=== PATIENT | male | born 1980 | race Caucasian/White ===

== ENCOUNTER 2018-06-19 21:23 | Emergency (ER) | payer BC ==
[2018-06-19 21:41] VITALS: BP 135/79
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
== END 2018-06-19 22:07 | disposition home or self-care (01) ==
LOC: UCCORT 21:23
DX: S09.90XA Unspecified injury of head, initial encounter (principal); S00.01XA Abrasion of scalp, initial encounter; W22.8XXA Striking against or struck by other objects, initial encounter; Y93.I9 Activity, other involving external motion; Y92.9 Unspecified place or not applicable; Z88.0 Allergy status to penicillin
CPT/HCPCS: 99212; G0463

== ENCOUNTER 2018-09-25 13:04 | Emergency (ER) | payer BC ==
[2018-09-25 13:29] VITALS: BP 128/68
--- NOTE | 2018-09-25 13:33 | UC ---
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 duration of bite is not known. no feferv, rash, joint pains or fatigue. - History of Current Complaint Stated Complaint: TICK BITE Time Seen by Provider: 09/25/18 13:21 Hx Obtained From: Patient Pain Intensity: 0 - Allergy/Home Medications Allergies/Adverse Reactions: Allergies Allergy/AdvReac Type Severity Reaction Status Date / Time Penicillins Allergy Intermediate Rash Verified 09/25/18 13:26 Home Medications: Home Medications Ibuprofen TAB* [Advil TAB*] 400 mg PO Q6H PRN 09/25/18 [History Confirmed ] PMH/Surg Hx/FS Hx/Imm Hx Previously Healthy: Yes - Surgical History Surgical History: Yes Surgery Procedure, Year, and Place: HERNIA REPAIR - Family History Known Family History: Positive: Non-Contributory - Social History Occupation: Employed Full-time Alcohol Use: Occasionally Substance Use Type: None Smoking Status (MU): Never Smoked Tobacco Review of Systems All Other Systems Reviewed And Are Negative: Yes Constitutional: Negative: Fever, Fatigue Skin: Negative: Rash Musculoskeletal: Negative: Arthralgia Physical Exam Triage Information Reviewed: Yes Appearance: Well-Appearing Vital Signs: Initial Vital Signs Temp 98.5 F 09/25/18 13:24 Pulse 68 09/25/18 13:24 Resp 16 09/25/18 13:24 BP 128/68 09/25/18 13:24 Pulse Ox 98 09/25/18 13:24 Vital Signs Reviewed: Yes Eyes: Positive: Conjunctiva Clear Respiratory: Positive: Lungs clear Cardiovascular: Positive: RRR Musculoskeletal: Positive: ROM Intact Neurological: Positive: Alert Psychological: Positive: Age Appropriate Behavior Skin Exam: Normal, Other - Tick on L back, small not engorged. Skin: Negative: Rashes Course/Dx - Course Course Of Treatment: Procedure by this PA, tick removed whole with a twister then site cleaned. - Diagnoses Provider Diagnosis: Tick bite Discharge - Sign-Out/Discharge Documenting (check all that apply): Patient Departure All imaging exams completed and their final reports reviewed: No Studies - Discharge Plan Condition: Stable Disposition: HOME Prescriptions: DOXYcycline CAP(*) [DOXYcycline 100MG CAP(*)] 200 mg PO ONCE #2 cap Patient Education Materials: Tick Bite (ED) Referrals: Roxy Cedillo NP [Primary Care Provider] - If Needed - Billing Disposition and Condition Condition: STABLE Disposition: Home - Attestation Statements Provider Attestation: I was available for consult. This patient was seen by the KYLE. The patient was not presented to , seen by or examined by sd -Timothy Andres MD
== END 2018-09-25 13:42 | disposition home or self-care (01) ==
LOC: UCCORT 13:04
DX: S20.469A Insect bite (nonvenomous) of unspecified back wall of thorax, initial encounter (principal); X58.XXXA Exposure to other specified factors, initial encounter; Z88.0 Allergy status to penicillin
CPT/HCPCS: 99212; G0463